=== PATIENT | male | born 1965 ===

== ENCOUNTER 2023-11-03 09:34 | Emergency (ER) | payer MEDICARE, SELFPAY ==
--- NOTE | 2023-11-03 09:36 | ECG_ITS ---
[facility] Test Date: 2023-11-03 Pat Name: Jayro Miguel Department: Room: Gender: Male Technical Consultant: : 1955-05-16 Requested By: Moreno Kulkarni Order Number: [id number] Jeremiah MD: Genaro Bryant M.D. Measurements Intervals [place] Rate: 100 P: 49 ID: [id number] QRS: -18 QRSD: 85 T: -40 QT: 314 QTc: 406 Interpretive Statements SINUS TACHYCARDIA WITH OCCASIONAL VENTRICULAR PREMATURE COMPLEXES INFERIOR MYOCARDIAL INFARCTION , OF INDETERMINATE AGE [40+ ms Q WAVE AND/OR ST/T ABNORMALITY IN II/aVF] No previous ECG available for comparison Electronically Signed On 11-03-2023 11:50:51 DIRECTOR OF SAFETY by Genaro Bryant M.D. [id number]
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
[2023-11-03 09:42] VITALS: BP 97/59; PULSE 87; RESP 22; TEMP 36.3; O2SAT 99; BMI 31.0
--- NOTE | 2023-11-03 09:49 | XR_ITS ---
WS: [id number] Exam: XR chest 1V portable [id number] Date/Time of Exam: 11/03/2023 9:49 AM Reason For Exam: chest pain No priors. The lungs are fully expanded and clear. Unremarkable cardiomediastinal silhouette for AP technique. N o pleural effusions. Bony structures are intact. Thoracic dextroscoliosis. IMPRESSION: 1. No acute cardiopulmonary finding.
[2023-11-03] MEDS: aspirin 81 mg Chew Tablet 324 MG PO (09:57)
[2023-11-03 10:00] VITALS: BP 155/98; PULSE 109; O2SAT 99
--- NOTE | 2023-11-03 10:11 | CT_ITS ---
WS: [id number] CT HEAD NONCONTRAST HISTORY: Left arm weakness/pain TECHNIQUE: Contiguous axial imaging performed through the brain in 2.5 mm imaging. Bone and soft tiss ue windows. Sagittal and coronal reformats reviewed. All CT scans at [facility] use at least one of these dose optimization techniques: automated exposure control; mA and/or kV adjustment per pa tient size (includes targeted exams where dose is matched to clinical indication); or iterative recon struction. DLP: 1153.48 mGy.cm COMPARISON: None available. No acute intracranial hemorrhage, midline shift or mass effect. Mild bilateral symmetric atrophy. Low-attenuation in the periventricular white matter and the basal g anglia from chronic small vessel ischemic disease. Ventricles: Normal size with no hydrocephalus. Paranasal sinuses: Mild mucoperiosteal thickening RIGHT maxillary sinus. Mastoid air cells: Well pneumatized. Calvarium and scalp: Skull is intact with no soft tissue edema or swelling. IMPRESSION: 1. No acute intracranial hemorrhage or edema. 2. Mild bilateral cerebral atrophy with moderate small vessel ischemic changes in the white matter. A small vessel ischemic disease is more than expected for patient of this age. Consider other etiolog ies also such as hypertension, smoking, diabetes and demyelinating disease.
[2023-11-03 10:17] LABS: Basophils # 0.1 10^3/uL (0.0-0.1); Basophils % 0.7 %; Eosinophils # 0.1 10^3/uL (0.0-0.8); Eosinophils % 0.7 %; Lymphocytes # 3.1 10^3/uL (0.8-4.8); Lymphocytes % 25.7 %; Mean Corpuscular Volume 76.8 fl (82-101); Mean Platelet Volume 10.2 fL (7.4-10.4); Monocytes # 1.3 10^3/uL (0.2-0.9); Monocytes % 10.5 %; Neutrophils # 7.52 10^3/uL (1.8-7.7); Neutrophils % 61.8 %; Nucleated Red Blood Cells % 0 %; Platelet Count 402 10^3/cmm (157-399); Red Blood Count 5.21 10^6/uL (3.85-5.65); Red Cell Distribution Width 20.5 % (12.1-15.1); White Blood Count 12.16 10^3/uL (3.29-11.43)
[2023-11-03 10:29] LABS: Alanine Aminotransferase 32 U/L (0-41); Albumin Level 3.7 g/dL (3.5-5.2); Alkaline Phosphatase 49 U/L (40-130); Aspartate Amino Transferase 42 U/L (0-40); Blood Urea Nitrogen 22 mg/dL (6-20); Carbon Dioxide 23 mmol/L (22-29); Chloride 96 mmol/L (98-107); Creatinine Clr Calc Pharmacy 78.2849; Glomerular Filtration Rate 62.6 mL/min (90-130); Glucose 144 mg/dL (65-115); Osmolality Calculated 290 mOsm/kg (285-295); Sodium 137 mmol/L (136-145); Total Bilirubin 0.5 mg/dL (0.15-1.2); Total Protein 6.7 g/dL (6.6-8.7)
[2023-11-03 10:30] LABS: Troponin(5th) Baseline 83 ng/L (0-15)
[2023-11-03 10:31] LABS: Anion Gap 21.3 (5-19); Potassium 3.3 mmol/L (3.5-5.1)
--- NOTE | 2023-11-03 10:52 | PC.PHAR ---
pt states he stop taking his medications 2 months ago-pt states he will refuse to take any medications anymore-pt states he picked up his medications but hasnt been taking-ext shows last filled hctz 25mg bid filled 10/07/23 30d/s albuterol hfa 2p q4-6h prn filled 09/08/23 divalproex er 500mg take 2 tabs (1,000mg) daily filled 08/19/23 30d/s xanax 2mg take 1/2 tab (1mg) qam and 1 tab (2mg) hs filled 08/19/23 30d/s hctz 12.5mg bid filled 08/12/23 90d/s lipitor 10mg hs filled 08/07/23 90d/s one touch ultra test strips filled 09/08/23
--- NOTE | 2023-11-03 11:25 | PC.NURSE ---
1113 automotive tire technician notified me that the pt had been seen leaving the ER. Tech attempted to stop him and he did not hesitate and continued out the front doors. automotive tire technician saw IV laying on bed in room. 1115 This nurse attempted to call x2. Pt answered on second attempt. I ask him if he was okay and if something happened to make him want to leave. He said everything was fine and he wasn't coming back. 1120 Dr. Yonug recieved the elevated troponin and asked to update pt. I called the pt x2 again. he answered on second attempt. I explained that his lab work was back and his cardiac enzyme was elevated and that his chest pain was very real and could be life threatening. He said tell someone who cares! I said sir, I am sorry for whatever happened and I would be glad to meet you at the front doors. he kept repeating to tell someone who cares. I said sir this is very important for your health I am asking you to come back. I said we have had multiple helicopters going out and it is a busy ER but he is equally important. He told me to bill him and hung up.
== END 2023-11-03 11:28 | disposition left against medical advice (07) ==
PROVIDERS: Emergency Provider Family Medicine
DX: I24.9 Acute ischemic heart disease, unspecified (principal)
CPT/HCPCS: 70450; 71045; 80053; 84484; 85025; 93005; 99285